=== PATIENT | male | born 1955 | race Caucasian/White ===

== ENCOUNTER 2017-12-21 08:38 | Inpatient (IN) | payer OTHER ==
--- NOTE | 2017-12-21 06:29 | PDHPUP ---
History & Physical Update H&P update statement: This history and physical update is based on an assessment of the patient which was completed after admission or registration (within 24 hours), but prior to the surgery/procedure. H&P update: H&P reviewed & patient examined, no change in patient's condition since H&P completed
[2017-12-21] MEDS ORDERED: LR 1,000 ML IV ONE (08:52)
[2017-12-21] MEDS ORDERED: LIDOCAINE 1% 2 ML INJ ID PRN (08:52)
[2017-12-21] MEDS ORDERED: THROMBIN (BOVINE) 5,000 UNIT VIAL TP ONE (09:13)
[2017-12-21] MEDS ORDERED: BUPIVACAINE 0.25% 30 ML SDV ONE (09:13)
[2017-12-21] MEDS ORDERED: CHLORHEXIDINE GLUC HIBICLENS 118 ML BTL TP ONE (09:14)
[2017-12-21] MEDS ORDERED: EPINEPHrine 1 MG/ML INJ ONE (09:14)
[2017-12-21] MEDS ORDERED: BACITRACIN 50,000 UNITS/10 ML SYR IRR ONE (09:15)
[2017-12-21] MEDS ORDERED: MIDAZOLAM 2 MG/2 ML VIAL IVP ONE (10:46)
--- NOTE | 2017-12-21 10:46 | PDANEPAE ---
ANE History of Present Illness lower back pain + BLE weakness ANE Past Medical History - Cardiovascular History Hx Hypertension: No Hx Arrhythmias: Yes Hx Chest Pain: No Hx Coronary Artery / Peripheral Vascular Disease: No Hx CHF / Valvular Disease: No Hx Palpitations: Yes Cardiovascular History Comment: HX - MILD PACs/PVCs - ASYMPTOMATIC SINCE 2013 - Pulmonary History Hx COPD: No Hx Asthma/Reactive Airway Disease: No Hx Recent Upper Respiratory Infection: No Hx Oxygen in Use at Home: No Hx Sleep Apnea: Yes Sleep Apnea Screening Result - Last Documented: Positive Pulmonary History Comment: PPP for MULUGETA - Neurologic History Hx Cerebrovascular Accident: No Hx Seizures: No Hx Dementia: No - Endocrine History Hx Diabetes: No - Renal History Hx Renal Disorders: No - Liver History Hx Hepatic Disorders: No - Neurological & Psychiatric Hx Hx Neurological and Psychiatric Disorders: No - Cancer History Hx Cancer: No - Congenital Disorder History Hx Congenital Disorders: No - GI History Hx Gastrointestinal Disorders: No - Other Health History Other Health History: RUNS LOW WBC & PLATELET COUNT - WAS EVALUATED BY [facility] WITH NO DX - TAKES IRON - Chronic Pain History Chronic Pain: Yes (LOW BACK & R LEG) - Surgical History Prior Surgeries: L3/L4 MICRODISCECTOMY & FORAMINOTOMY. RTC HONG. SINUS PPP/ SEPTOPLASTY. VASECTOMY ANE Review of Systems Review of Systems: - Exercise capacity METS (RN): 4 METS ANE Patient History - Allergies Allergies/Adverse Reactions: No Known Allergies Allergy (Verified 12/08/17 11:18) - Home Medications Home medications: home medication list seen and reviewed Home Medications: Acetaminophen [Tylenol 325mg (*)] 325 mg PO Q6HRS PRN 12/08/17 [Last Taken 12/20 19:00] Herbals/Supplements -Info Only 1 ea PO DAILY 12/08/17 [Last Taken 12/14/17] Multivitamins [Multivitamin (*)] 1 each PO DAILY 12/08/17 [Last Taken 12/14/17] Testosterone IM [Testosterone 100mg/ml IM inj (*)] 75 mg IM SUWE 12/08/17 [Last Taken 12/21/17 06:30] Zolpidem Tartrate [Ambien 5MG (*)] 5 mg PO HS PRN 12/08/17 [Last Taken 12/20/17 19:00] oxyCODONE IR [Oxycodone Ir (*)] 5 mg PO Q6HRS PRN 12/08/17 [Last Taken 12/20/17 19:00] Cyclobenzaprine [Flexeril 10 MG (*)] 10 mg PO HS 12/21/17 [Last Taken 12/20/17] - NPO status NPO Since - Liquids (Date): 12/20/17 NPO Since - Liquids (Time): 22:00 NPO Since - Solids (Date): 12/20/17 NPO Since - Solids (Time): 19:00 - Anes Hx Anes Hx: no prior problems - Smoking Hx Smoking Status: Never smoked - Family Anes Hx Family Hx Anesthesia Complications: NEG ANE Labs/Vital Signs - Vital Signs Blood Pressure: 122/92 Heart Rate: 70 Respiratory Rate: 16 O2 Sat (%): 95 Height: 177.8 cm Weight: 81.647 kg ANE Physical Exam - Airway Neck exam: FROM Mallampati Score: Class 2 Mouth exam: normal dental/mouth exam - Pulmonary Pulmonary: no respiratory distress, no rales or rhonchi - Cardiovascular Cardiovascular: regular rate and rhythym, no murmur, rub, or gallop - ASA Status ASA Status: II ANE Anesthesia Plan Anesthesia Plan: general endotracheal anesthesia
[2017-12-21] MEDS ORDERED: PROPOFOL/EMULSION 500 MG/50 ML BOTTLE IV ONE ×3 (10:52→13:45)
[2017-12-21] MEDS ORDERED: PROPOFOL 200 MG/20 ML VIAL ONE (10:52)
[2017-12-21] MEDS ORDERED: REMIFENTANIL HCL 1 MG VIAL ONE ×2 (10:52→13:01)
[2017-12-21] MEDS ORDERED: fentaNYL 100 MCG/2 ML INJ ONE ×2 (10:52→15:28)
[2017-12-21] MEDS ORDERED: ZOLPIDEM TARTRATE 5 MG TAB PO PRN (10:52)
[2017-12-21] MEDS ORDERED: ONDANSETRON 4 MG/2 ML VIAL IVP PRN ×2 (10:53→14:32)
[2017-12-21] MEDS ORDERED: LACTULOSE 20 GM/30 ML UDCUP PO PRN (10:53)
[2017-12-21] MEDS ORDERED: BISACODYL 10 MG SUPP PR PRN (10:53)
[2017-12-21] MEDS ORDERED: ONDANSETRON DISINTEGRATING 4 MG TAB PO PRN (10:53)
[2017-12-21] MEDS ORDERED: MAGNESIUM HYDROXIDE 30 ML UDCUP PO PRN (10:53)
[2017-12-21] MEDS ORDERED: diphenhydrAMINE 25 MG CAP PO PRN (10:53)
[2017-12-21] MEDS ORDERED: HYDROCODONE/APAP 5/325 TAB PO PRN (10:53)
[2017-12-21] MEDS ORDERED: NALOXONE HCL 0.4 MG/ML INJ IVP PRN ×2 (10:53→14:32)
[2017-12-21] MEDS ORDERED: HYDROmorphONE/DILAUDID 1 MG/ML INJ IVP PRN (10:53)
[2017-12-21] MEDS ORDERED: morphINE PCA 30 MG/30 ML PCA IV PRN (10:53)
[2017-12-21] MEDS ORDERED: POLYETHYLENE GLYCOL 3350 17 GM PKT PO PRN (10:53)
[2017-12-21] MEDS ORDERED: LIDOCAINE 2% 5 ML SDV ONE (10:56)
[2017-12-21] MEDS ORDERED: ROCURONIUM 50 MG/5 ML VIAL ONE (10:56)
[2017-12-21] MEDS ORDERED: ONDANSETRON 4 MG/2 ML VIAL ONE (10:56)
[2017-12-21] MEDS ORDERED: DEXAMETHASONE 4 MG/ML VIAL ONE (10:56)
[2017-12-21] MEDS ORDERED: TESTOSTERONE IM 100 MG/ML SYRINGE IM SCH (11:00)
[2017-12-21] MEDS ORDERED: NS 1,000 ML IV SCH (11:00)
[2017-12-21] MEDS ORDERED: CEFAZOLIN 2 GM/DEXTROSE/100 ML BAG IV ONE (11:04)
[2017-12-21] MEDS ORDERED: HYDROmorphONE/DILAUDID 2 MG/ML INJ ONE (14:28)
[2017-12-21] MEDS ORDERED: PROMETHAZINE HCL 25 MG/ML INJ IVP PRN (14:32)
--- NOTE | 2017-12-21 15:20 | POSTANESTH ---
Post Anesthetic Evaluation Cardiovascular Status: Normal, Stable Respiratory Status: Normal, Stable Level of Consciousness/Mental Status: Can Participate in Eval Pain Control: Adequate, Prn Tx Ordered Nausea/Vomiting Control: Adequate, Prn Tx Ordered Complications Possibly Related to Anesthesia: None Noted
[2017-12-21] MEDS: fentaNYL 100 MCG/2 ML INJ IVP PRN ×2 (15:29→15:39)
--- NOTE | 2017-12-21 15:32 | SOAPPROG ---
SOAP Progress Note Assessment/Plan: Post Op Visit: S: Awake and alert. Pt with expected lower back pain O: AFVSS/PERRLA/EOMI no droop CN 2-12 grossly intact +lt touch 5/5 BUE/BLE = CDI A/P 62 yo male that is s/p TLIF at L4/5 -orders in place -call with any questions or concerns -PT/OT -brace when out of bed 12/21/17 15:27 Objective: Vital Signs Temp Pulse Resp BP Pulse Ox 36.8 C 70 17 125/92 H 100 12/21/17 09:32 12/21/17 11:46 12/21/17 15:21 12/21/17 15:21 12/21/17 15:21 ICD10 Worksheet Patient Problems: Problems Problem Status Onset Arthrodesis status Acute Lumbar radicular pain Acute Lumbar stenosis Acute - ICD10 Problem Qualifiers (1) Lumbar stenosis (2) Lumbar radicular pain (3) Arthrodesis status
--- NOTE | 2017-12-21 15:36 | POSTOPPROG ---
Post Op Note Date of Operation: 12/21/17 Surgeon: Kimberly Salcedo Compliance Review Specialist: Ginger Anesthesiologist: Edith Anesthesia: GET(General Endotracheal), Local (Specify) Pre-op Diagnosis: lumbar stenosis Post-op Diagnosis: lumbar stenosis/radiculopathy Indication: LBP/LE pain Procedure: TLIF L4/5 Findings: none Inf/Abcess present in the surg proc area at time of surgery?: No Depth: Deep Incisional (Fascial) EBL: 100-500
[2017-12-21] MEDS ORDERED: HYDROmorphONE/DILAUDID 1 MG/ML INJ ONE ×2 (15:53→16:13)
[2017-12-21] MEDS: HYDROmorphONE/DILAUDID 1 MG/ML INJ IVP PRN ×4 (15:53→16:45)
[2017-12-21] MEDS ORDERED: METHOCARBAMOL 750 MG TAB ONE (16:13)
--- NOTE | 2017-12-21 16:14 | GOP ---
[f rep st] OPERATIVE REPORT DATE OF OPERATION: 12/21/2017 SURGEON: Bradly Salcedo MD NEUROSURGEON: Bradly Salcedo MD. RACECOURSE BARRIER ATTENDANT: Kwame Miles PA-C. PREOPERATIVE DIAGNOSIS: POSTOPERATIVE DIAGNOSIS: PROCEDURE PERFORMED: L4-5 transforaminal interbody fusion with bilateral decompressions, right more than left (74416), with posterolateral and intervertebral arthrodesis same level, spinal stereotaxy, posterior nonsegmental instrumentation across a single interspace L4-5, microscope, placement of biom echanical intervertebral device L4-5. FINDINGS: ESTIMATED BLOOD LOSS: 100 cc. INDICATIONS: The patient is a middle-aged gentleman who had a prior history of a right L3-4 microdis kectomy by without complication and did well from this. He came to see me with 95% of his pain being in his right hip and right axial low back pain. He also had a right L4 mediated radi culitis down the leg. He had previous left-sided radiculitis, but his predominant pain complaint tia ding up to this surgery was severe right-sided axial low back pain. An MRI demonstrated no evidence of compressive lesion at L3-4 at the site of his prior surgery. Ther e was no evidence of complication from his prior surgery. He did have evidence of facet arthropathy at L4-5 and severe right foraminal stenosis with complete obliteration of the right L4-5 neural rinku en. There was both a lateral foraminal fragment, as well as an intraforaminal fragment, as well as l ateral recess stenosis at L4-5, hypertrophic facet, and even bony lipping coming off the inferior end plate of L4 causing severe foraminal stenosis of the exiting L4 nerve root. I suggested a single-lev el decompression and fusion. He did have some mild left-sided symptoms, they are mild and I thought we would decompress the left-hand side as well, but we would focus attention of our surgery on the ri ght-hand side. The risk of continued symptoms, nerve injury, spinal fluid leak, screw and hardware malposition was d iscussed. He had a prior problem at L3-4, severe disk degenerative change at L3-4, and he understood that in time he may ultimately require surgery at that level. He knew there was risk of continued s ymptoms and failure of the surgery to alleviate his pain and he wanted to proceed despite these risks . DESCRIPTION OF PROCEDURE: The patient was taken to the operating room, placed in supine position. G eneral anesthesia was begun. He was flipped prone onto the Bryant table. Care was taken to pad all points of contact. His back was sterilely prepped and draped in usual fashion. A localizing x-ray was taken. We made a midline incision incorporating the inferior most portion of the L3-4 incision. That one me asured about 2 inches in length. We extended our incision down inferiorly for a total incision lengt h of about 4 inches. The subcutaneous tissue was dissected using Bovie cautery down to the fascia an d a subperiosteal dissection was made down the L4 and L5 lamina. Self-retaining retractor was placed . We denuded the bilateral L4-5 facet joints after an x-ray. We decorticated the transverse process es of L4-5, attached a Stealth reference frame and performed an O-arm spin, and using frame of [facility] stereotaxy, we placed pedicle screws bilaterally at L4 and L5. The screws were in excellent positi on and they all stimulated at acceptable levels. We took a 40 mm travis and connected between L4 and L5, distracted slightly on the left, a little more s o on the right, and got excellent elevation, particularly on the right-hand side and reduced the dege nerative tilt at L4-5. The alignment between L4 and L5 was excellent. We then decorticated all of t he posterior bony elements at L4-5 to create a posterolateral arthrodesis. We then harvested the inf erior L4 spinous process for autologous grafting purposes. We drilled bilateral L4-5 laminectomies w ith a high-speed drill and harvested this bone for autologous grafting purposes. Under the microscope, we opened ligamentum flavum and decompressed the thecal sac, and we initially p erformed a left lateral recess decompression on the left side. We preserved the left L4-5 facet join t and it was decorticated for arthrodesis. On the right, we removed completely the right L4-5 facet joint including the IAP-SAP of the joint and identified the exiting L4 nerve root. The traversing L5 nerve root was also decompressed. We then coagulated the epidural veins there and incised the L4 di sk in the foramen. After doing so, we removed some small intradiscal fragments and this allowed us t o then push underneath the L4 nerve root with a ball-tip probe and we deliver 2 large extraforaminal disk fragments simply by pushing on the lateral anulus of the disk underneath the L4 nerve root. Thi s relaxed the L4 nerve nicely. It was totally decompressed. We then aggressively removed the disk a nd the cartilaginous endplates to create arthrodesis at L4-5 and sized the space and chose a 9 x 28 m m device. BMP and bone were inserted into the disk space. BMP was placed into the device. We inser zaheer the 9 mm device, shot a fluoroscopic x-ray, confirmed its location and then deployed it increasin g the lordosis of the device according to company specification. We then irrigated with antibiotic saline solution, decorticated the remaining visible bone, shot a fi nal x-ray confirming the location of our device, as well as our screws and hardware. We placed bony autograft and BMP posterolaterally bilaterally, followed by a subfascial drain. The patient was reve rsed from anesthesia, extubated, and transferred to recovery room in stable condition. There were no complications. COMPLICATIONS: None. /[id number]/MODL
[2017-12-21] MEDS: METHOCARBAMOL 750 MG TAB PO PRN (16:18)
--- NOTE | 2017-12-21 16:51 | PDMN ---
Medical Necessity [place] [facility] [place] Medicare In[place] Only. 3 days. 62 y/o s/p L4/5 TLIF Lum Casey fusion w/ stealth
[2017-12-21] MEDS: ACETAMINOPHEN 500 MG TAB PO SCH ×2 (17:52→22:05)
[2017-12-21] MEDS: GABAPENTIN 300 MG CAP PO SCH ×2 (17:53→22:06)
[2017-12-21] MEDS: ceFAZolin 2 GM/DEXTROSE 100 ML IV SCH (19:59)
[2017-12-21] MEDS: FAMOTIDINE 20 MG TAB PO SCH (22:05)
[2017-12-21] MEDS: SENNOSIDES/DOCUSATE SODIUM TAB PO SCH (22:05)
[2017-12-21] MEDS: oxyCODONE IR 5 MG TAB PO PRN (22:06)
[2017-12-21] MEDS: CYCLOBENZAPRINE 10 MG TAB PO SCH (22:06)
[2017-12-22] MEDS: oxyCODONE IR 5 MG TAB PO PRN ×9 (02:08→22:10)
[2017-12-22] MEDS: METHOCARBAMOL 750 MG TAB PO PRN ×3 (02:09→14:42)
[2017-12-22] MEDS: ceFAZolin 2 GM/DEXTROSE 100 ML IV SCH (03:39)
[2017-12-22 05:14] LABS: PLATELET COUNT 152 10^3/uL (150-400)
[2017-12-22] MEDS: ACETAMINOPHEN 500 MG TAB PO SCH ×3 (06:11→21:05)
[2017-12-22] MEDS: GABAPENTIN 300 MG CAP PO SCH ×3 (06:11→21:05)
[2017-12-22] MEDS: FAMOTIDINE 20 MG TAB PO SCH ×2 (08:25→21:04)
[2017-12-22] MEDS: SENNOSIDES/DOCUSATE SODIUM TAB PO SCH ×2 (08:26→21:04)
--- NOTE | 2017-12-22 08:29 | NEUSURGPN ---
Assessment/Plan: Post Op Visit: S: Patient is doing well. Has expected back pain but his right leg is much improved this morning. O: NAD, VSS AFVSS/PERRLA/EOMI no droop CN 2-12 grossly intact +lt touch 5/5 BUE/BLE = CDI A/P: 62 yo male that is s/p TLIF at L4/5 -Doing well this morning with expected back pain. Will increase Oxy to 5-10mg and keep with Robaxin -ERIC output 140 overnight, will pull today -PT/OT -x-ryas today -Dispo - most likely tomorrow unless he is feeling great later today and clears therapies -brace when out of bed -Discussed with Dr. Salcedo - Physician Discussed Patient with : [facility] Physical Exam - Vitals, I&O, Labs I and O 12/21/17 12/22/17 12/23/17 05:59 05:59 05:59 Intake Total 2800 Output Total 2830 Balance -30 Weight 81.647 kg Intake: Oral (ml) 1300 IV Intake (ml) 1500 Output: Urine (ml) 2350 Catheter 2350 Estimated Blood Loss (ml) 150 ERIC Drain Output (ml) 330 #1 Right Posterior Back 330 Bryant Gama Other: Intake Quantity Yes Sufficient Vital Signs Temp Pulse Resp BP Pulse Ox 36.4 C 61 18 119/76 92 12/22/17 07:53 12/22/17 07:53 12/22/17 07:53 12/22/17 07:53 12/22/17 07:53 Laboratory Results 12/22/17 04:43 12/22/17 04:43 ICD10 Worksheet Patient Problems: Problems Problem Status Onset Arthrodesis status Acute Lumbar radicular pain Acute Lumbar stenosis Acute
--- NOTE | 2017-12-22 15:57 | ASMTCMCOM ---
CM Note CM Note Notes: Pt s/p TLIF. OT/PT rec home. Pt resides with spouse. Anticipate pt will d/c when medically stable. No CM d/c needs identified. CM available for changes/needs. Date Signed: 12/22/2017 03:57 PM Electronically Signed By:BEN Blount
[2017-12-22] MEDS: CYCLOBENZAPRINE 10 MG TAB PO SCH (21:04)
[2017-12-23] MEDS: ACETAMINOPHEN 500 MG TAB PO SCH ×3 (05:47→21:06)
[2017-12-23] MEDS: GABAPENTIN 300 MG CAP PO SCH ×3 (05:48→21:05)
--- NOTE | 2017-12-23 07:48 | NEUSURGPN ---
Assessment/Plan: A/P: 62 yo male that is s/p TLIF at L4/5 POD#2 -Doing well this morning - cont current regimen for pain meds -ERIC has been removed -PT/OT -x-rays show stable hardware -TEDs, SCDs, lovenox to begin tomorrow -Dispo - dc home today vs tomorrow pending clinical course -brace when out of bed -Discussed with Dr. Salcedo -Please call NS with any issues Subjective: Pt resting in bed, wants to be more independent before he goes home. Slept well. pain ok. Objective: AAOx3 NAD VSS MAEx4 Motor 5/5 BLE Incision dressed cdi +LT Urinary Catheter in Place: No - Physician Discussed Patient with : [facility] Physical Exam - Vitals, I&O, Labs I and O 12/22/17 12/23/17 12/24/17 05:59 05:59 05:59 Intake Total 2800 2580 Output Total 2830 2800 Balance -30 -220 Weight 81.647 kg Intake: Oral (ml) 1300 2580 IV Intake (ml) 1500 Output: Urine (ml) 2350 2750 Catheter 2350 900 Urinal 1850 Estimated Blood Loss (ml) 150 ERIC Drain Output (ml) 330 50 #1 Right Posterior Back 330 50 Bryant Gama Other: Intake Quantity Yes Yes Sufficient Number of Voids Catheter 1 Urinal 1 Vital Signs Temp Pulse Resp BP Pulse Ox 36.9 C 60 16 100/74 96 12/23/17 04:00 12/23/17 04:00 12/23/17 04:00 12/23/17 04:00 12/23/17 04:00 Laboratory Results 12/22/17 04:43 12/22/17 04:43 ICD10 Worksheet Patient Problems: Problems Problem Status Onset Arthrodesis status Acute Lumbar radicular pain Acute Lumbar stenosis Acute
[2017-12-23] MEDS: FAMOTIDINE 20 MG TAB PO SCH ×2 (08:31→21:06)
[2017-12-23] MEDS: oxyCODONE IR 5 MG TAB PO PRN ×3 (08:32→18:08)
[2017-12-23] MEDS: METHOCARBAMOL 750 MG TAB PO PRN ×2 (08:33→17:06)
[2017-12-23] MEDS: SENNOSIDES/DOCUSATE SODIUM TAB PO SCH ×2 (08:33→21:06)
[2017-12-23] MEDS: CYCLOBENZAPRINE 10 MG TAB PO SCH (21:06)
[2017-12-24] MEDS: METHOCARBAMOL 750 MG TAB PO PRN (06:21)
[2017-12-24] MEDS: GABAPENTIN 300 MG CAP PO SCH (06:21)
[2017-12-24] MEDS: oxyCODONE IR 5 MG TAB PO PRN (06:21)
[2017-12-24] MEDS: ACETAMINOPHEN 500 MG TAB PO SCH (06:22)
[2017-12-24 08:25] VITALS: BP 129/83
[2017-12-24] MEDS: SENNOSIDES/DOCUSATE SODIUM TAB PO SCH (08:47)
[2017-12-24] MEDS: FAMOTIDINE 20 MG TAB PO SCH (08:47)
[2017-12-24] MEDS ORDERED: ENOXAPARIN 40 MG/0.4 ML SYR SC SCH (09:00)
--- NOTE | 2017-12-24 10:16 | SOAPPROG ---
SOAP Progress Note Assessment/Plan: Assessment: 62 yo M POD #3 L4/5 TLIF Plan: stable and doing well PT/OT post op x-rays look great scd/zaheer/lovenox for dvt prophylaxis ok to dc home if constipation improves please call with neuro changes discussed with Dr Jeong 12/24/17 10:14 Subjective: continued back pain, some pain in lateral thighs. no weakness. Objective: Vital Signs Temp Pulse Resp BP Pulse Ox 37.1 C 77 16 129/83 H 91 L 12/24/17 08:00 12/24/17 08:00 12/24/17 08:00 12/24/17 08:00 12/24/17 08:00 Laboratory Results 12/22/17 04:43 12/22/17 04:43 12/23/17 12/24/17 12/25/17 05:59 05:59 05:59 Intake Total 2580 750 400 Output Total 2800 1250 Balance -220 -500 400 AAOx4, +FC PERRL, EOMI, no facial droop 5/5 + Light touch C/D/I ICD10 Worksheet Patient Problems: Problems Problem Status Onset Arthrodesis status Acute Lumbar radicular pain Acute Lumbar stenosis Acute
--- NOTE | 2017-12-29 09:44 | SUROPNOTE ---
[facility] Operative Report - Surgery Addendum to Op Report: PReop Diagnosis: Right Foraminal disk protrusion L45, Right L4 radiculopathy, Bilateral Stenosis L45, Lumbar DDD. Postop Diagnosis: Same.
--- NOTE | 2018-01-03 08:49 | GDS ---
[f rep st] DISCHARGE SUMMARY PRIMARY DIAGNOSIS: Lumbar stenosis L4-5. OPERATION PROCEDURE: L4-5 transforaminal interbody fusion with bilateral decompressions, right more than left, posterolateral intervertebral arthrodesis, same level with placement of biomechanical inte rvertebral device at L4-5. HOSPITAL COURSE: The patient is a middle-aged gentleman who had a prior history of a right L3-4 micr odiskectomy without complication, did well from this. He came to see Dr. Salcedo with 95% of his pain being in the right hip with right axial low back pain. He had a right L4 mediated radiculitis down the leg. He had a previous left-sided radiculitis. An MRI demonstrated no evidence of compression l esion L3-4 but there was severe compression noted L4-5. Recommendation for surgery decompression was given to the patient. He underwent a decompression and fusion procedure with Dr. Salcedo on 12/22/19 and tolerated the procedure well. He was admitted postoperatively. On postoperative day #1 and 2 of 2017, he underwent some x-rays of the lumbar spine which showed fusi on between L4-5 segments with hemilaminectomy suspected, stable minimal subluxations, L2-3 and L3-4 w ith moderate disk space narrowing and osteophytes noted. No complications were noted. The patient w as seen on a daily basis, on 12/23/2017, after he worked with PT, OT. He is tolerating his brace wel l and his pain was under control. He was discharged home. He was doing well on the current pain man agement strategy. Please see med reconciliation. His ERIC was placed in the operating room, removed i ntact postoperatively. X-rays were stable and reviewed with both Dr. Salcedo and the patient. The jing lees was given KAELA, SCDs and Lovenox to begin the day after. He did not require this if he was walk ing well. He tolerated his brace. We talked about what to watch out for and warning signs. CONSULTS: None. COMPLICATIONS: None. DISCHARGE CONDITION: Stable and improved. DISCHARGE INSTRUCTIONS: Standard discharge instructions given to the patient following instrumented lumbar fusion. We talked about worsening symptoms, new pain, weakness, numbness, tingling, loss of b owel or bladder control, problems with gait or balance. The patient will follow up with us in the of gavi in likely 2 weeks for postoperative check then likely at 2 months with x-rays, 3-6 months, 9 months to a year, year and a half, and 2 years with x-rays when clinically appropriate to ensure radiographic fusion. /[id number]/MODL
== END 2017-12-24 13:10 | disposition home or self-care (01) | DRG 455 ==
LOC: F3N 08:38
PROVIDERS: ADMIT Neurological Surgery; ATTEND Neurological Surgery
DX: M48.062 Spinal stenosis, lumbar region with neurogenic claudication (principal); M54.16 Radiculopathy, lumbar region; M51.36 Other intervertebral disc degeneration, lumbar region; M47.817 Spondylosis without myelopathy or radiculopathy, lumbosacral region; G47.33 Obstructive sleep apnea (adult) (pediatric)
CPT/HCPCS: 97116-GP; 97161-GP; 97166-GO; 97535-GO; C1713; J0171; J0690; J1071; J1100; J1170; J1650; J2250; J2405; J2704; J3010

== ENCOUNTER → 2018-01-29 | Outpatient (CLI) | payer OTHER | LOC: FLAB 07:09 → EDSTATUS 07:14 → FIMAGING 07:19 | PROVIDERS: ATTEND Physician Assistant | DX: M51.36 Other intervertebral disc degeneration, lumbar region (principal); Z98.1 Arthrodesis status ==

== ENCOUNTER → 2018-04-22 | Outpatient (CLI) | payer OTHER | LOC: FIMAGING 07:47 | PROVIDERS: ATTEND Nurse Practitioner | DX: M50.322 Other cervical disc degeneration at C5-C6 level (principal); M53.82 Other specified dorsopathies, cervical region; M48.02 Spinal stenosis, cervical region ==

== ENCOUNTER → 2018-04-29 | Outpatient (CLI) | payer OTHER | LOC: FIMAGING 08:26 | PROVIDERS: ATTEND Nurse Practitioner | DX: M47.896 Other spondylosis, lumbar region (principal); M25.78 Osteophyte, vertebrae; Z98.1 Arthrodesis status ==

== ENCOUNTER → 2018-08-12 | Outpatient (CLI) | payer OTHER | LOC: FIMAGING 09:31 | PROVIDERS: ATTEND Nurse Practitioner | DX: Z09 Encounter for follow-up examination after completed treatment for conditions other than malignant neoplasm (principal); Z98.1 Arthrodesis status; M51.36 Other intervertebral disc degeneration, lumbar region ==